=== PATIENT | male | born 2000 | race Two or more races ===

== ENCOUNTER 2021-07-03 14:17 | Emergency (ER) | payer SELFPAY ==
[~2021-07-03] VITALS: Ht 167.6 cm; Wt 88.5 kg
[2021-07-03 14:17] VITALS: BP 121/82
[2021-07-03] MEDS ORDERED: LIDOCAINE 1% HCL (LOCAL ANESTH.) INJ 20ML MDV IJ ONE (17:00)
[2021-07-03] MEDS ORDERED: TETANUS-DIPTH-ACEL PERTUSSIS 0.5ML SYR Tdap IM ONE (17:00)
== END 2021-07-03 18:30 | disposition home or self-care (01) ==
LOC: ER 14:17
DX: S61.012A Laceration without foreign body of left thumb without damage to nail, initial encounter (principal); W26.0XXA Contact with knife, initial encounter; Y93.89 Activity, other specified; Y92.89 Other specified places as the place of occurrence of the external cause; Y99.8 Other external cause status
CPT/HCPCS: 12002; 90471; 90715; 99283; J2001

== ENCOUNTER 2024-03-19 15:21 | Emergency (ER) | payer SELFPAY ==
[~2024-03-19] VITALS: Ht 167.6 cm; Wt 95.5 kg
[2024-03-19] MEDS: IOHEXOL 300 MG/ML 100ML BOTTLE IJ ONE (15:46)
[2024-03-19] MEDS ORDERED: IBU600T PO (17:25)
[2024-03-19 17:31] VITALS: BP 120/72; PULSE 88; RESP 17; TEMP 97.9; O2SAT 95
== END 2024-03-19 17:39 | disposition home or self-care (01) ==
LOC: ER 15:21 → EDUNIT# 15:21 → EDBD 15:21 → ER 17:39
DX: S00.81XA Abrasion of other part of head, initial encounter (principal); S60.416A Abrasion of right little finger, initial encounter; R51.9 Headache, unspecified; V89.2XXA Person injured in unspecified motor-vehicle accident, traffic, initial encounter; Y93.I9 Activity, other involving external motion; Y92.89 Other specified places as the place of occurrence of the external cause; Y99.8 Other external cause status
CPT/HCPCS: 70450; 71260; 72125; 73120; 74177; 99285; Q9967